=== PATIENT | male | born 1990 | race Hispanic/Latino ===

== ENCOUNTER 2019-01-22 16:34 | Emergency (ER) | payer OTHER ==
[2019-01-22 19:01] LABS: Barbiturates NEGATIVE (NEGATIVE); Benzodiazepines NEGATIVE (NEGATIVE); Cocaine NEGATIVE (NEGATIVE); METHAMPHETAM NEGATIVE (NEGATIVE); Methadone NEGATIVE (NEGATIVE); Opiates NEGATIVE (NEGATIVE); Phencyclidine NEGATIVE (NEGATIVE); THC Cannibis NEGATIVE (NEGATIVE)
[2019-01-22 19:43] LABS: Absolute Lymphocytes (CBC) 2.9 K/uL (0.7-4.9); Absolute Monocytes 0.6 K/uL (0.1-1.3); Absolute Neutrophil 4.1 K/uL (1.8-8.0); Basophils % 0.7 % (0-1.3); Eosinophils % 1.4 % (0-4.4); Hematocrit 46.3 % (39.6-49.0); MPV 8.6 fL (7.6-11.3); Monocytes % 7.3 % (3.3-12.3); RBC Red Blood Cell Count 5.33 M/uL (4.33-5.43)
[2019-01-22 19:51] LABS: Protime INR 1.02
[2019-01-22 20:11] LABS: ALT/SGPT 40 U/L (12-78); AST/SGOT 20 U/L (15-37); Albumin 3.7 g/dL (3.4-5.0); Alkaline Phosphatase 82 U/L (45-117); BUN Blood Urea Nitrogen 12 mg/dL (7-18); Bicarbonate 31 mmol/L (21-32); Bilirubin Direct < 0.1 mg/dL (0-0.2); Bilirubin Total 0.2 mg/dL (0.2-1.0); Glucose Level 82 mg/dL (74-106); Protein, Total 7.7 g/dL (6.4-8.2); Sodium Level 142 mmol/L (136-145)
--- NOTE | 2019-01-22 20:36 | ER ---
Nurse's Notes [facility] Name: Damon Deluca III Age: 28 yrs Sex: Male : 1990 Arrival Date: 01/22/2019 Time: 16:51 Bed 14 Private MD: Diagnosis: Epilepsy and recurrent seizures Presentation: 01/22 17:01 Presenting complaint: Mother states: He had a seizure today. Reports that his last aj1 seizure was 2-3 weeks ago. He recently moved here from [place], and has not gotten a neurologist since he came to [place]. Patient also reports that he has been having hallucinations of a little boy that tells him he should hurt himself. Patient denies any intent to harm himself or others at this time. Transition of care: patient was not received from another setting of care. Onset of symptoms was January 22, 2019. Risk Assessment: Do you want to hurt yourself or someone else? Patient reports no desire to harm self or others. Initial Sepsis Screen: Does the patient meet any 2 criteria? No. Patient's initial sepsis screen is negative. Does the patient have a suspected source of infection? No. Patient's initial sepsis screen is negative. Care prior to arrival: None. 17:01 Method Of Arrival: EMS: [facility] aj1 17:01 Acuity: BIRGIT 3 aj1 Triage Assessment: 17:10 General: Appears in no apparent distress. comfortable, Behavior is calm, cooperative, aj1 appropriate for age. Pain: Denies pain. Historical: - Allergies: 17:10 No Known Allergies; aj1 - Home Meds: 17:10 benazepril 20 mg oral tab 1 tab once daily [Active]; benztropine 2 mg Oral tab 1 tab aj1 once daily [Active]; divalproex 250 mg oral Tb24 2 tabs once daily [Active]; Haloperidol Oral 2 mg daily [Active]; levetiracetam 250 mg oral tab 2 tabs daily [Active]; venlafaxine 150 mg oral cp24 1 cap once daily [Active]; - PMHx: 17:10 Schizophrenia; Seizures; Anxiety; Depression; memory loss; aj1 - Immunization history:: Flu vaccine is up to date. - Social history:: Smoking status: Patient/guardian denies using tobacco. - Ebola Screening: : Patient denies travel to an Ebola-affected area in the 21 days before illness onset. Screenin:12 Abuse screen: Denies threats or abuse. Denies injuries from another. Nutritional aj1 screening: No deficits noted. Tuberculosis screening: No symptoms or risk factors identified. 19:00 Fall Risk Secondary diagnosis (15 points) seizures, IV access (20 points). Mental rr5 Status- Oriented to own ability (0 pts). Total Caldera Fall Scale indicates Low Risk Score (25-44 pts). Fall prevention measures have been instituted. Side Rails Up X 2 Placed close to Nursing Station Frequent Obs/Assesments occuring Family Present and informed to notify staff if they need to leave bedside As available Patient and Family Educated on Fall Prevention Program and strategies. Assessment: 17:12 General: Appears in no apparent distress. comfortable, Behavior is calm, cooperative, aj1 appropriate for age. Pain: Denies pain. Neuro: Level of Consciousness is awake, alert, obeys commands, Oriented to person, place, time, situation, Moves all extremities. Full function Speech is normal, Facial symmetry appears normal. Cardiovascular: Patient's skin is warm and dry. Respiratory: Airway is patent Respiratory effort is even, unlabored, Respiratory pattern is regular, symmetrical. GI: No signs and/or symptoms were reported involving the gastrointestinal system. : No signs and/or symptoms were reported regarding the genitourinary system. EENT: Derm: No signs and/or symptoms reported regarding the dermatologic system. Skin is pink, warm \\T\\ dry. Musculoskeletal: No signs and/or symptoms reported regarding the musculoskeletal system. Circulation, motion, and sensation intact. 17:34 Reassessment: Patient's mother called me into the room stating that she thinks he is aj1 having another seizure. Patient is in bed, holding his head with both hands and rocking his head side to side. Patient makes eye contact when he is spoken to, the whole episode lasts approximately 30 seconds. Patient's mother states "this is what it looked like when he had a seizure before" After the episode patient is alert and oriented x4, when asked what happened patient states "I get a really bad pain in my head and it gets out of control." Asked patient if the pain was better now and he says that it is. 18:16 Reassessment: Patient appears in no apparent distress at this time. No changes from aj1 previously documented assessment. Patient and/or family updated on plan of care and expected duration. Pain level reassessed. Patient is alert, oriented x 3, equal unlabored respirations, skin warm/dry/pink. 19:00 General: Appears in no apparent distress. comfortable, Behavior is calm, cooperative, rr5 appropriate for age. Pain: Denies pain. Neuro: Level of Consciousness is awake, alert, obeys commands, Oriented to person, place, time, situation. Cardiovascular: Capillary refill < 3 seconds Patient's skin is warm and dry. 19:00 Respiratory: Airway is patent Respiratory effort is even, unlabored, Respiratory rr5 pattern is regular, symmetrical. GI: No signs and/or symptoms were reported involving the gastrointestinal system. : No signs and/or symptoms were reported regarding the genitourinary system. EENT: No signs and/or symptoms were reported regarding the EENT system. Derm: Skin is intact, Skin is pink, warm \\T\\ dry. Skin temperature is warm. Musculoskeletal: Circulation, motion, and sensation intact. Capillary refill < 3 seconds, Range of motion: intact in all extremities. 19:30 Reassessment: patient holding and shaking his head facial grimace noted. asked the rr5 location of the pain responded correctly slitter service and setter said there is some episodes of confusion, they want to be check by behavioral department. ED provider informed without order made. 20:20 Reassessment: Patient appears in no apparent distress at this time. awaiting for rr5 laboratory results. 20:59 Reassessment: Patient appears in no apparent distress at this time. Patient is alert, rr5 oriented x 3, equal unlabored respirations, skin warm/dry/pink. discharge instruction given and explained without complaints made. Patient denies pain at this time. Patient states feeling better. Patient states symptoms have improved. Vital Signs: 17:10 BP 116 / 62; Pulse 74; Resp 18; Temp 100.2; Pulse Ox 96% on R/A; Weight 117.93 kg (R); aj1 Height 5 ft. 11 in. (180.34 cm) (R); Pain 0/10; 18:16 BP 137 / 73; Pulse 75; Resp 18; Pulse Ox 97% on R/A; aj1 19:00 BP 113 / 60; Pulse 78; Resp 16; Temp 98.4; Pulse Ox 98% ; rr5 20:00 BP 118 / 76; Pulse 79; Resp 17; Pulse Ox 98% ; rr5 20:59 BP 114 / 74; Pulse 75; Resp 16; Pulse Ox 99% ; rr5 17:10 Body Mass Index 36.26 (117.93 kg, 180.34 cm) [facility] ED Course: 16:51 Patient arrived in ED. bd 16:52 Yuri Silva NP is PHCP. pm1 16:52 Magdaleno Dixon MD is Attending Physician. pm1 17:01 Yi Toure, COLEEN is Primary Nurse. aj1 17:05 Triage completed. aj1 17:10 Arm band placed on. aj1 17:12 Patient has correct armband on for positive identification. Bed in low position. Call aj1 light in reach. Side rails up X 1. 17:12 No provider procedures requiring assistance completed. aj1 18:09 EKG done, by armorer technician. reviewed by Yuri Silva NP. 3 19:11 Report given to COLEEN Webb. aj1 21:00 IV discontinued, intact, bleeding controlled, No redness/swelling at site. G22 at right rr5 AC. Administered Medications: No medications were administered Outcome: 20:35 Discharge ordered by MD. pm1 21:01 Discharged to home ambulatory, with family. rr5 21:01 Condition: stable 21:01 Discharge instructions given to patient, family, Instructed on discharge instructions, follow up and referral plans. Demonstrated understanding of instructions, follow-up care. 21:03 Patient left the ED. rr5 Signatures: [place] Lomas Angela, RN RN [facility] Yuri Silva NP GUIDE DOMESTIC TOUR pm1 Jael Moreno 3 Jon Barbosa RN RN rr5 Corrections: (The following items were deleted from the chart) 19:58 19:00 Musculoskeletal: Circulation, motion, and sensation intact. Capillary refill < 3 rr5 seconds, left wrist and forearm Swelling rr5 20:00 19:00 Neuro: Level of Consciousness is awake, alert, obeys commands, mild drowsiness rr5 noted.. Oriented to person, place, time, situation, rr5
--- NOTE | 2019-01-22 20:36 | EDPHYS ---
Physician Documentation [facility] Name: Damon Deluca III Age: 28 yrs Sex: Male : 1990 Arrival Date: 01/22/2019 Time: 16:51 Bed 14 Private MD: ED Physician Magdaleno Dixon HPI: 01/22 18:00 This 28 yrs old Male presents to ER via EMS with complaints of Seizure. pm1 18:00 The patient presents with a history of multiple seizures, a total of 2. Character of pm1 seizure(s): Loss of consciousness: the patient did not lose consciousness, Motor activity: None, Incontinence: none, Apnea: the patient did not experience apnea, Circulation: the patient did not experience evidence of pulse disturbance, Moving head side to side. Seizure onset: today. Context: the seizure(s) was witnessed, by family, mother, occurred at home, occurred while the patient was lying down. Seizure Hx: Seizure medications: valproic acid. Associated injury: The patient did not suffer any apparent associated injury. Current symptoms: Currently, the patient is not experiencing any symptoms. The patient has experienced similar episodes in the past, multiple times. Historical: - Allergies: 17:10 No Known Allergies; aj1 - Home Meds: 17:10 benazepril 20 mg oral tab 1 tab once daily [Active]; benztropine 2 mg Oral tab 1 tab aj1 once daily [Active]; divalproex 250 mg oral Tb24 2 tabs once daily [Active]; Haloperidol Oral 2 mg daily [Active]; levetiracetam 250 mg oral tab 2 tabs daily [Active]; venlafaxine 150 mg oral cp24 1 cap once daily [Active]; - PMHx: 17:10 Schizophrenia; Seizures; Anxiety; Depression; memory loss; aj1 - Immunization history:: Flu vaccine is up to date. - Social history:: Smoking status: Patient/guardian denies using tobacco. - Ebola Screening: : Patient denies travel to an Ebola-affected area in the 21 days before illness onset. ROS: 18:00 Constitutional: Negative for fever, chills, and weight loss, Eyes: Negative for injury, pm1 pain, redness, and discharge, ENT: Negative for injury, pain, and discharge, Neck: Negative for injury, pain, and swelling, Cardiovascular: Negative for chest pain, palpitations, and edema, Respiratory: Negative for shortness of breath, cough, wheezing, and pleuritic chest pain, Abdomen/GI: Negative for abdominal pain, nausea, vomiting, diarrhea, and constipation, Back: Negative for injury and pain, : Negative for injury, bleeding, discharge, and swelling, MS/Extremity: Negative for injury and deformity, Skin: Negative for injury, rash, and discoloration. 18:00 Neuro: Positive for seizure activity, Negative for altered mental status, gait disturbance, numbness, tingling, weakness. Exam: 18:00 Constitutional: This is a well developed, well nourished patient who is awake, alert, pm1 and in no acute distress. Head/Face: Normocephalic, atraumatic. Eyes: Pupils equal round and reactive to light, extra-ocular motions intact. Lids and lashes normal. Conjunctiva and sclera are non-icteric and not injected. Cornea within normal limits. Periorbital areas with no swelling, redness, or edema. ENT: Nares patent. No nasal discharge, no septal abnormalities noted. Tympanic membranes are normal and external auditory canals are clear. Oropharynx with no redness, swelling, or masses, exudates, or evidence of obstruction, uvula midline. Mucous membranes moist. Neck: Trachea midline, no thyromegaly or masses palpated, and no cervical lymphadenopathy. Supple, full range of motion without nuchal rigidity, or vertebral point tenderness. No Meningismus. Chest/axilla: Normal chest wall appearance and motion. Nontender with no deformity. No lesions are appreciated. Cardiovascular: Regular rate and rhythm with a normal S1 and S2. No gallops, murmurs, or rubs. Normal PMI, no JVD. No pulse deficits. Respiratory: Lungs have equal breath sounds bilaterally, clear to auscultation and percussion. No rales, rhonchi or wheezes noted. No increased work of breathing, no retractions or nasal flaring. Abdomen/GI: Soft, non-tender, with normal bowel sounds. No distension or tympany. No guarding or rebound. No evidence of tenderness throughout. Back: No spinal tenderness. No costovertebral tenderness. Full range of motion. Skin: Warm, dry with normal turgor. Normal color with no rashes, no lesions, and no evidence of cellulitis. MS/ Extremity: Pulses equal, no cyanosis. Neurovascular intact. Full, normal range of motion. 18:00 Neuro: Orientation: to person, place, time, situation, Motor: moves all fours, Sensation: is normal, no obvious gross deficits. Vital Signs: 17:10 BP 116 / 62; Pulse 74; Resp 18; Temp 100.2; Pulse Ox 96% on R/A; Weight 117.93 kg (R); aj1 Height 5 ft. 11 in. (180.34 cm) (R); Pain 0/10; 18:16 BP 137 / 73; Pulse 75; Resp 18; Pulse Ox 97% on R/A; aj1 19:00 BP 113 / 60; Pulse 78; Resp 16; Temp 98.4; Pulse Ox 98% ; rr5 20:00 BP 118 / 76; Pulse 79; Resp 17; Pulse Ox 98% ; rr5 20:59 BP 114 / 74; Pulse 75; Resp 16; Pulse Ox 99% ; rr5 17:10 Body Mass Index 36.26 (117.93 kg, 180.34 cm) aj1 MDM: 16:53 Patient medically screened. pm1 19:38 Data reviewed: vital signs. Data interpreted: Pulse oximetry: on room air is 97 %. pm1 Interpretation: normal. 20:35 Counseling: I had a detailed discussion with the patient and/or guardian regarding: the pm1 historical points, exam findings, and any diagnostic results supporting the discharge/admit diagnosis, lab results, the need for outpatient follow up, to return to the emergency department if symptoms worsen or persist or if there are any questions or concerns that arise at home. 01/22 17:11 Order name: Acetaminophen; Complete Time: 20:33 pm1 01/22 17:11 Order name: Basic Metabolic Panel; Complete Time: 20:33 pm1 01/22 17:11 Order name: CBC with Diff; Complete Time: 20:33 pm1 01/22 17:11 Order name: ETOH Level; Complete Time: 20:33 pm1 01/22 17:11 Order name: Hepatic Function; Complete Time: 20:33 pm1 01/22 17:11 Order name: PT-INR; Complete Time: 20:33 pm1 01/22 17:11 Order name: Ptt, Activated; Complete Time: 20:33 pm1 01/22 17:11 Order name: Salicylate; Complete Time: 20:33 pm1 01/22 17:11 Order name: Urine Drug Screen; Complete Time: 19:19 pm1 01/22 17:11 Order name: EKG; Complete Time: 17:22 pm1 01/22 17:11 Order name: EKG - Nurse/Tech; Complete Time: 18:57 pm1 01/22 17:11 Order name: IV Saline Lock; Complete Time: 18:57 pm1 01/22 17:12 Order name: Valproic Acid (depakote); Complete Time: 20:33 pm1 01/22 18:37 Order name: Urine Dipstick--Ancillary (enter results) bd 01/22 17:11 Order name: Labs collected and sent; Complete Time: 19:36 pm1 01/22 17:11 Order name: Urine Dipstick-Ancillary (obtain specimen); Complete Time: 18:57 pm1 Administered Medications: No medications were administered Disposition: 01/23 06:48 Co-signature as Attending Physician, Magdaleno Dixon MD I agree with the assessment and kdr plan of care. Disposition: 01/22/19 20:35 Discharged to Home. Impression: Epilepsy and recurrent seizures. - Condition is Stable. - Discharge Instructions: Seizure, Adult, [id number]. - Medication Reconciliation Form, Thank You Letter form. - Follow up: Emergency Department; When: As needed; Reason: Worsening of condition. Follow up: Private Physician; When: 2 - 3 days; Reason: Recheck today's complaints, Continuance of care, Re-evaluation by your physician. - Problem is new. - Symptoms have improved. Signatures: Dispatcher [employer] Yi Wright RN RN aj1 Magdaleno Dixon MD MD kdr Marinas, Patrick, NP FLAT CUTTER pm1 Jon Barbosa RN RN rr5 Corrections: (The following items were deleted from the chart) 01/22 21:03 20:35 01/22/2019 20:35 Discharged to Home. Impression: Epilepsy and recurrent seizures. rr5 Condition is Stable. Forms are Medication Reconciliation Form, Thank You Letter, Antibiotic Education, Prescription Opioid Use. Follow up: Emergency Department; When: As needed; Reason: Worsening of condition. Follow up: Private Physician; When: 2 - 3 days; Reason: Recheck today's complaints, Continuance of care, Re-evaluation by your physician. Problem is new. Symptoms have improved. pm1
[2019-01-22 23:57] LABS: Urine Blood NEGATIVE (NEG); Urine Glucose NEGATIVE (NEG); Urine Protein NEGATIVE (NEG)
--- NOTE | 2019-01-23 05:50 | EKG ---
Test Date: 2019-01-22 Test Time: 17:47:53 Stripper Soft Plastic: JOE MEASUREMENT RESULTS: Intervals: Rate: 72 OK: 134 QRSD: 86 QT: 354 QTc: 387 [place]: P: 32 OK: 134 QRS: 59 T: 6 INTERPRETIVE STATEMENTS: Normal sinus rhythm Normal ECG No previous ECG available for comparison Electronically Signed On 01-23-19 05:49:23 WAITSTAFF CAPTAIN by Ted Ambriz
== END 2019-01-22 21:03 | disposition home or self-care (01) ==
LOC: ER 16:34
DX: G40.909 Epilepsy, unspecified, not intractable, without status epilepticus (principal); F41.9 Anxiety disorder, unspecified; F32.9 Major depressive disorder, single episode, unspecified; F20.9 Schizophrenia, unspecified
CPT/HCPCS: 36415; 80048; 80076; 80164; 80307; 80320; 80329; 81003; 85025; 85610; 85730; 93005; 99283